=== PATIENT | male | born 1950 | race Caucasian/White ===

== ENCOUNTER 2023-01-15 06:40 | Day surgery (SDC) | payer MEDICARE, OTHER ==
[~2023-01-15] VITALS: Ht 172.7 cm; Wt 111.1 kg
[~2023-01-15 06:40] MED LIST: AMIO200T49 PO; ATOR80TA59 PO; B-122500 PO; BAYE81TA7 PO; CALCTAB41 PO; CARV25TA PO; DIGO0.123 PO; DILT1CAP46 PO; ELIQ5TAB PO; FAMO20TA PO; FOLI800C PO; LISI10TA22 PO; MAGN400T2 PO; METF10004 PO; PANT40TA29 PO; RA V400C PO; SEMA2PEN SQ; SERT50TA29 PO; TAMS1CAP17 PO; TORS20TA2 PO
[2023-01-15] MEDS ORDERED: propofoL 200 MG/20 ML VIAL As Ordered ONE ×3 (08:03→08:42)
[2023-01-15] MEDS ORDERED: LIDOCAINE 2% 100MG/5ML SDV (FOR ANES.) As Ordered ONE ×2 (08:03→08:16)
[2023-01-15] MEDS ORDERED: ePHEDrine SULFATE 25 MG/5 ML(5MG/ML) SYRINGE As Ordered ONE (09:11)
[2023-01-15 09:35] VITALS: BP 135/70
== END 2023-01-15 09:57 | disposition home or self-care (01) ==
LOC: M OPP 06:40
PROVIDERS: ATTEND Surgery
DX: D12.3 Benign neoplasm of transverse colon (principal); K64.1 Second degree hemorrhoids; K57.30 Diverticulosis of large intestine without perforation or abscess without bleeding; Z86.010 Personal history of colon polyps

== ENCOUNTER 2024-04-29 07:48 | Day surgery (SDC) | payer MEDICARE, OTHER ==
[~2024-04-29] VITALS: Ht 172.7 cm; Wt 99.2 kg
[~2024-04-29 07:48] MED LIST changes: -DILT1CAP46 PO; +DILT360C22 PO
[2024-04-29] MEDS: NS 1,000 ML IV ONE (08:14)
[2024-04-29] MEDS ORDERED: propofoL 200 MG/20 ML VIAL As Ordered ONE (09:24)
[2024-04-29] MEDS ORDERED: LIDOCAINE 2% 100MG/5ML SDV (FOR ANES.) As Ordered ONE (09:24)
[2024-04-29 09:36] VITALS: TEMP 98.4
[2024-04-29 09:51] VITALS: BP 137/63; O2SAT 95
== END 2024-04-29 09:55 | disposition home or self-care (01) ==
LOC: M OPP 07:48
PROVIDERS: ATTEND Surgery
DX: Z86.010 Personal history of colon polyps (principal); K63.5 Polyp of colon; K64.0 First degree hemorrhoids; K57.30 Diverticulosis of large intestine without perforation or abscess without bleeding; I48.91 Unspecified atrial fibrillation; E11.9 Type 2 diabetes mellitus without complications; I10 Essential (primary) hypertension; Z87.891 Personal history of nicotine dependence; Z79.01 Long term (current) use of anticoagulants; Z79.02 Long term (current) use of antithrombotics/antiplatelets; Z79.84 Long term (current) use of oral hypoglycemic drugs; Z79.85 Long-term (current) use of injectable non-insulin antidiabetic drugs; Z79.899 Other long term (current) drug therapy